=== PATIENT | female | born 1935 | race Caucasian/White ===

== ENCOUNTER 2019-07-06 06:07 | Emergency (ER) | payer MEDICARE ==
[~2019-07-06] VITALS: Ht 167.6 cm; Wt 75.0 kg
[2019-07-06] MEDS ORDERED: CARV3.1262 PO (06:38)
[2019-07-06] MEDS ORDERED: ATOR40TA28 PO (06:38)
[2019-07-06] MEDS ORDERED: ACETAMINOPHEN 500 MG TABLET PO ONE (07:45)
[2019-07-06 10:02] VITALS: BP 136/64
== END 2019-07-06 10:14 | disposition home or self-care (01) ==
LOC: EMS 06:07
DX: S20.211A Contusion of right front wall of thorax, initial encounter (principal); S00.03XA Contusion of scalp, initial encounter; I10 Essential (primary) hypertension; W18.39XA Other fall on same level, initial encounter; Y93.89 Activity, other specified; Y92.89 Other specified places as the place of occurrence of the external cause; Y99.8 Other external cause status
CPT/HCPCS: 70450; 71101